=== PATIENT | female | born 1980 | race Caucasian/White ===

== ENCOUNTER 2023-08-23 12:40 | Outpatient (CLI) | payer OTHER ==
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
--- NOTE | 2023-08-23 20:22 | Ultrasound Report ---
PROCEDURE: Renal (Retroperitoneal) INDICATIONS: LEFT FLANK PAIN TECHNIQUE: Real-time scanning was performed of the retroperitoneal organs, with image documentation. COMPARISON: None. FINDINGS: Kidneys: Kidneys are normal in size. Right kidney measures 11.0 cm long; left kidney measures 13.6 cm long. Right renal cortical thickness is 1.2 cm; left renal cortical thickness is 0.9 cm. No perla d masses, hydronephrosis, or nephrolithiasis. Bladder: Pre-void bladder volume is 200.8 mL. Post-void residual is 53.9 mL. Pre-void images demon strate no intraluminal masses or stones. On pre-void images, bilateral ureteral jets are noted with color Doppler interrogation. (Of note, ureteral jets may not be detectable in up to 25% of cases due to insufficient differences in specific gravity between ureteral and bladder urine). Miscellaneous: No free abdominal fluid. IMPRESSION: 1. Normal-appearing bilateral kidneys. No hydronephrosis or solid appearing renal lesion. 2. Normal appearing urinary bladder with small to moderate amount of postvoid residual. Reviewed by: Crow Manjarrez MD on 08/23/2023 8:21 PM PDT Approved by: Crow Manjarrez MD on 08/23/2023 8:21 PM PDT Station ID: [id number]
== END 2023-08-23 12:41 | disposition home or self-care (01) ==
LOC: DI 12:40
PROVIDERS: ATTEND Student in an Organized Health Care Education/Training Program
DX: R10.9 Unspecified abdominal pain (principal)
CPT/HCPCS: 93975

== ENCOUNTER 2023-08-23 12:41 | Outpatient (CLI) | payer OTHER ==
--- NOTE | 2023-08-23 19:12 | XRAY Report ---
PROCEDURE: Abdomen 1 V INDICATIONS: LEFT FLANK PAIN TECHNIQUE: One view of the abdomen acquired. COMPARISON: None. FINDINGS: Surgical changes and devices: None. Bowel: Bowel gas pattern is normal. Soft tissues: No suspicious abdominal calcifications. Visualized solid organ contours appear normal in size. Bones: No suspicious bony lesions. IMPRESSION: No acute abdominal pathology. No gross renal calculi are seen. Reviewed by: Crow Manjarrez MD on 08/23/2023 7:11 PM PDT Approved by: Crow Manjarrez MD on 08/23/2023 7:11 PM PDT Station ID: [id number]
== END 2023-08-23 12:42 | disposition home or self-care (01) ==
LOC: DI 12:41
PROVIDERS: ATTEND Student in an Organized Health Care Education/Training Program
DX: R10.9 Unspecified abdominal pain (principal)

== ENCOUNTER 2023-12-28 09:02 | Outpatient (CLI) | payer OTHER ==
[2023-12-28 12:56] LABS: BASOPHILS % (AUTO) 0.4 %; EOSINOPHILS # (AUTO) 0.3 10^3/uL (0.0-0.7); EOSINOPHILS % (AUTO) 3.1 %; HCT - HEMATOCRIT 44.8 % (37.0-47.0); HGB - HEMOGLOBIN 13.5 g/dL (12.0-16.0); LYMPHOCYTES # (AUTO) 3.3 10^3/uL (1.5-3.5); LYMPHOCYTES % (AUTO) 31.8 %; MEAN CORPUSCULAR HEMOGLOBIN 24.9 pg (27.0-31.0); MEAN CORPUSCULAR HGB CONC 30.1 g/dL (32.0-36.0); MEAN CORPUSCULAR VOLUME 82.5 fL (81.0-99.0); MEAN PLATELET VOLUME 10.2 fL (7.9-10.8); MONOCYTES # (AUTO) 0.4 10^3/uL (0.0-1.0); MONOCYTES % (AUTO) 4.1 %; NEUTROPHILS # (AUTO) 6.2 10^3/uL (1.5-6.6); NEUTROPHILS % (AUTO) 60.4 %; PLT - PLATELET COUNT 333 10^3/uL (130-450); RED BLOOD COUNT 5.43 10^6/uL (4.20-5.40); RED CELL DISTRIBUTION WIDTH 14.4 % (12.0-15.0); WHITE BLOOD COUNT 10.2 x10^3/uL (4.8-10.8)
[2023-12-28 13:18] LABS: ESTIMATED AVERAGE GLUCOSE 117 mg/dL (70-100); HEMOGLOBIN A1c% 5.7 % (4.27-6.07)
[2023-12-28 13:51] LABS: ALBUMIN 4.3 g/dL (3.2-5.5); ALBUMIN/GLOBULIN RATIO 1.6 (1.0-2.2); BILIRUBIN,TOTAL 0.4 mg/dL (0.2-1.0); CALCIUM 9.4 mg/dL (8.5-10.3); CREATININE 0.7 mg/dL (0.6-1.3)
[2023-12-28 14:35] LABS: THYROID STIMULATING HORMONE 3.23 uIU/mL (0.34-5.60)
== END 2023-12-28 09:03 | disposition home or self-care (01) ==
LOC: LAB.N 09:02
DX: Z00.00 Encounter for general adult medical examination without abnormal findings (principal)
CPT/HCPCS: 36415; 80053; 83036; 84443; 85025

== ENCOUNTER 2024-02-12 10:15 | Outpatient (CLI) | payer OTHER ==
--- NOTE | 2024-02-12 13:48 | XRAY Report ---
PROCEDURE: Hand 3+V LT INDICATIONS: CONTUSION OF LEFT HAND TECHNIQUE: 3 view(s) of the hand(s) acquired. COMPARISON: None FINDINGS: Bones: No fractures or dislocations. No suspicious bony lesions. Soft tissues: No suspicious soft tissue calcifications. IMPRESSION: Unremarkable hand radiographs Reviewed by: Dilshad Ybarra MD on 02/12/2024 12:47 PM AKDT Approved by: Dilshad Ybarra MD on 02/12/2024 12:47 PM AKDT Station ID: [id number]
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
== END 2024-02-12 10:30 | disposition home or self-care (01) ==
LOC: DI.N 10:15
PROVIDERS: ATTEND Physician Assistant
DX: S60.222A Contusion of left hand, initial encounter (principal); Z87.898 Personal history of other specified conditions